=== PATIENT | female | born 1985 | race Caucasian/White ===

== ENCOUNTER 2018-02-03 10:59 | Emergency (ER) | payer MEDICAID ==
[~2018-02-03] VITALS: Ht 157.5 cm; Wt 46.4 kg
[~2018-02-03 10:59] MED LIST: DIAZ5TAB PO; IBUP-1986 PO; PENI500T2 PO; PROC-8 PO
[2018-02-03 11:05] VITALS: BP 110/56
== END 2018-02-03 11:59 | disposition home or self-care (01) ==
LOC: ER 11:00
DX: F11.10 Opioid abuse, uncomplicated (principal); G43.909 Migraine, unspecified, not intractable, without status migrainosus; Z60.2 Problems related to living alone; Z79.899 Other long term (current) drug therapy
CPT/HCPCS: 99281